=== PATIENT | female | born 1965 | race Caucasian/White ===

== ENCOUNTER 2019-09-24 17:26 | Emergency (ER) | payer MEDICAID ==
[~2019-09-24] VITALS: Ht 152.4 cm; Wt 90.7 kg
[~2019-09-24 17:26] MED LIST: [UNRECOGNIZED DRUG - REMARK]
[2019-09-24 17:53] VITALS: BP 151/91
--- NOTE | 2019-09-24 20:18 | NUR ---
PT AMBULATED TO BED #8
--- NOTE | 2019-09-24 20:24 | NUR ---
54 Y/O F C/C LEFT HEEL PAIN X3 DAYS. PER PT PAIN RADIATES FROM HEEL TO BACK. HAS TAKEN IBUPROFEN WITH NO RELIEF. PAIN 8/10. PER PT DENIES TRAUMA. ROM,CMS,PEDAL PULSE WDL. PT NKA. HX HTN. RX AMLODOPINE. DENIES N/V/D. SIDE RAIL X1.
--- NOTE | 2019-09-24 20:43 | NUR ---
XRAY AT BEDSIDE.
[2019-09-24 21:03] VITALS: BP 151/91
--- NOTE | 2019-09-24 21:03 | NUR ---
Patient discharged with v/s stable. Written and verbal after care instructions given and explained. Patient alert, oriented and verbalized understanding of instructions. Ambulatory with steady gait. All questions addressed prior to discharge. ID band removed. Patient advised to follow up with PMD. Rx of Naprosyn given. Patient educated on indication of medication including possible reaction and side effects. Opportunity to ask questions provided and answered. Pt discharged by Dr. Cheema.
== END 2019-09-24 21:03 | disposition home or self-care (01) ==
LOC: MED 17:26
DX: M77.32 Calcaneal spur, left foot (principal); I10 Essential (primary) hypertension; Z79.899 Other long term (current) drug therapy
CPT/HCPCS: 73630; 99283; Q0092

== ENCOUNTER 2023-02-03 17:24 | Emergency (ER) | payer MEDICAID ==
[~2023-02-03] VITALS: Ht 157.5 cm; Wt 81.6 kg
[2023-02-03 17:44] VITALS: BP 147/75
[2023-02-03] MEDS ORDERED: METH4TAB1 PO (18:57)
[2023-02-03] MEDS ORDERED: DIPH25TA53 PO (18:57)
[2023-02-03] MEDS ORDERED: HYD2.5O TP (18:57)
[2023-02-03 19:12] VITALS: BP 147/75
--- NOTE | 2023-02-03 19:12 | NUR ---
Patient discharged with v/s stable. Written and verbal after care instructions given and explained. Patient alert, oriented and verbalized understanding of instructions. Ambulatory with steady gait. All questions addressed prior to discharge. ID band removed. Patient advised to follow up with PMD. Rx of BENADRYL, HYDROCORTISONE, MEDROL DOSEPAK given. Patient educated on indication of medication including possible reaction and side effects. Opportunity to ask questions provided and answered.
== END 2023-02-03 19:12 | disposition home or self-care (01) ==
LOC: MED 17:24
DX: R21 Rash and other nonspecific skin eruption (principal); T78.49XA Other allergy, initial encounter; Z79.899 Other long term (current) drug therapy; X58.XXXA Exposure to other specified factors, initial encounter
CPT/HCPCS: 99283